=== PATIENT | female | born 1960 | race Caucasian/White ===

== ENCOUNTER 2017-12-07 06:39 | Day surgery (SDC) | payer OTHER ==
[~2017-12-07] VITALS: Ht 157.5 cm; Wt 70.2 kg
[~2017-12-07 06:39] MED LIST: ACET325 PO; CEFE1INJ2 IV; METR-1 PO; ONDA1TAB16 PO; VANC1000P IVPB; Z.0.NO CURRENT MEDS; [UNRECOGNIZED DRUG - CODE] IV
[2017-12-07] MEDS ORDERED: IOHEXOL 350 MG/ML 50 ML BTL (for Cath Lab) OTHER ONE (06:40)
[2017-12-07] MEDS ORDERED: NS 1000P @30 MLS/HR (KVO) IV SCH (07:00)
[2017-12-07] MEDS ORDERED: diphenhydrAMINE HCL 50 MG/ML VIAL IV PUSH SCH (07:00)
[2017-12-07] MEDS ORDERED: ASPI-516 CHEW (07:10)
[2017-12-07] MEDS ORDERED: ATOR40TA16 PO (07:10)
[2017-12-07 07:11] VITALS: BP 138/80; PULSE 68; RESP 18; TEMP 98.1; O2SAT 97
[2017-12-07] MEDS ORDERED: MIDAZOLAM HCL 2 MG/2 ML VIAL ONE ×2 (08:19→08:48)
[2017-12-07] MEDS ORDERED: HEPARIN-NS/PF FLUSH BAG 2,000 ML IV FLUSH ONE (08:19)
[2017-12-07] MEDS ORDERED: methylPREDNISolone SOD SUCC 125 MG/2 ML VIAL ONE (08:22)
[2017-12-07] MEDS ORDERED: LIDOCAINE HCL 1% PF 30 ML VIAL ONE (08:27)
[2017-12-07] MEDS ORDERED: MISC INFORMATION XX ONE (09:15)
--- NOTE | 2017-12-07 09:25 | MA ---
cc: Jones Nino MD DATE: 12/07/2017 INDICATION: Chest pain, abnormal stress test, intermediate risk. PROCEDURES PERFORMED: 1. Fluoroscopy interpretation. 2. Coronary angiography. 3. Left heart catheterization. METHOD: Risks, benefits and alternatives discussed with the patient. The patient understood and consented to the procedure. The patient was brought into the catheterization lab, placed on the catheterization table. The right wrist was prepped and draped in sterile fashion. The right wrist was anesthetized with 2% lidocaine. The right radial artery was cannulated and a 6-Eritrean, 7 cm sheath was placed without difficulty. 200 mcg of intraarterial nitroglycerin and additional 3000 units of intravenous heparin was administered. LEFT HEART CATHETERIZATION: Intraventricular hemodynamics measured at 105/8 mmHg. CORONARY ANGIOGRAPHY: 1. Left main coronary is widely patent. 2. Left anterior descending coronary has a 30% ostial stenosis. It is quite tortuous with a diagonal branch, which has mild luminal irregularities. Remainder of the left anterior descending coronary has mild luminal irregularities. 3. Left circumflex also very tortuous. Two obtuse marginal branches, both have minor luminal irregularities. 4. Right coronary has an angulated anterior takeoff, 30% stenosis in the proximal segment. The remainder of the vessel has minor luminal irregularities. CONCLUSIONS: 1. Mild nonobstructive coronary disease. 2. Normal left-sided filling pressures. PLAN: We will continue with medical management, although I think her symptoms are noncardiac in etiology. We will recommend noncardiac workup. She can followup with Dr. Alexandre. Radial band applied. Jones Nino MD REY/SB , 09:10 AM , 09:23 AM
--- NOTE | 2017-12-07 09:25 | CATHPROC ---
DCWafers HIS Report Study Information Study Number Admission Scheduled Start Study Start [id number] Dec 07 2017 6:39AM 12/07/2017 Dec 07 2017 8:15AM [place] Service Cardiac Catheterization Admit Source Facility Department Other [facility] - Instructional Design Specialist Physician and Clinical Staff Initial Jones Tsang [employer] Service Advisor Chris Hodgson,RN Recorder Augusto GONZALEZ, Jamshid Guan RCIS(BS) Procedures Performed Procedure Location (Site) Vessel Name Coronary Angiograms LCA Left Coronary Coronary Angiograms RCA Right Coronary L Heart Cath Wire insertion Radial (right) Radial Art. Equipment Time Assistant Cook Description Size Mfg Part Number Used/Scraped TRANSDUCER, TRUWAVE [id number] 08:47 [employer] * Used W/STOCKCOCK *[id number]-21-2.5 08:47 [employer]. NEEDLE, PERCUTANEOUS ENTRY 21G X 2.5CM Used *[id number] *[id number] 08:47 [employer] PACK, CCL CUSTOM * Used *[id number] 08:47 [employer] SUPPORT, ARTERIAL ADULT 01036 *[id number] Used [id number] 08:47 Amarin PACER PEN, SKIN DUAL W/ RULER * Used *[id number] 08:54 [employer] JR 5.0 DXTERITY CATHETER fr 5 [id number] Used BAND, RADIAL COMPRESSION TR [id number] 09:04 [email or web address] MEDICAL 24CM Used SHORT 24 *[id number] SHEATH, FR6 RADIAL PRELUDE 08:47 [employer] FR 6 [id number] Used EASE 11CM [id number] 08:47 [employer] WIRE, EXCHANGE 260CM 3MMJ 260CM Used *[id number] 08:47 [employer] OMNIPAQUE, 350 MG, 150ML 150ML [id number] Used [id number] 08:47 [employer] MEDICAL BLANKET,WARM AIR CCL * Used *[id number] Equipment Model, Serial, Lot Number and Expiration Data Description Model Number Serial Number Lot Number Expiration Date JR 5.0 DXTERITY CATHETER [id number] 03-11-2020 History: Current Medications Medication Dosage/Unit Route Frequency Last Date/Time Taken ASA Statins (any) History: Allergies Allergy Reaction Iodine Latex Acetaminophen Oxycodone ceftriaxone History: Risk Factors Family History of Hypertension Dyslipidemia Previous GA Previous Heart Failure Premature CAD No Yes No No No Prior Valve Prior PCI Prior CABG Surgery No No No Cerebrovascular Peripheral Artery Chronic Lung On Dialysis Diabetes Disease Disease Disease No No No Yes No History: Stress Tests Stress or Imaging Studies Performed Yes Standard Exercise Stress Test No Stress Echo No Stress Test SPECT Stress Test SPECT Result Stress Test SPECT Ischemia Risk/Extent Yes Positive Intermediate Stress Test CMR No Cardiac CTA Coronary Calcium Score No No History: Other Current Smoker No Labs Hgb (g/dl) Hct (%) WBC (l/cumm) Platelets (thousands) 11.60-17.00 35.00-51.00 4.00-11.00 150.00-450.00 12.0 37.1 4.7 205 Glucose (mg/dl) BUN (mg/dl) Creatinine (mg/dl) BUN:Creatinine (1:x) 74.00-106.00 7.00-18.00 0.50-1.30 10.00-20.00 122 13 0.8 16.3 Na (meq/l) K (meq/l) 136.00-145.00 3.50-5.10 143 4.3 INR (PTT:PT) 0.90-1.10 1 CPK-MB (ng/ML) 0.50-3.60 Not Drawn Medication Medication Total Dose (Bolus/Oral) Medication Total Dosage/Unit 1% XYLOCAINE 3 mL FENTANYL 75 mcg OXYGEN 2 l/min SOLU-MEDROL 125 mg VERSED 3 mg Medications (Bolus/Oral) Medication Time Given Dosage/Unit Administered By Reason SOLU-MEDROL 12/07/2017 8:29:35 AM 125 mg Chris Hodgson 125 mg SOLU-MEDROL given in lab by Chris Hodgson RN via Peripheral IV. Ordered by Jones Nino. 1% XYLOCAINE 12/07/2017 8:55:36 AM 3 mL Jones Nino 3 mL 1% XYLOCAINE given in lab by Jones Nino in Right Wrist via Subcutaneous. Ordered by Felipe Nino. VERSED 12/07/2017 8:56:39 AM 2 mg Chris Hodgson 2 mg VERSED given in lab by Chris Hodgson RN via Peripheral IV. Ordered by Jones Nino. OXYGEN 12/07/2017 8:57:09 AM 2 l/min Chris Hodgson 2 l/min OXYGEN given in lab by Chris Hodgson RN via Nasal. Ordered by Jones Nino. FENTANYL 12/07/2017 8:57:29 AM 50 mcg Chris Hodgson 50 mcg FENTANYL given in lab by Chris Hodgson RN via Peripheral IV. Ordered by Jones Nino. VERSED 12/07/2017 9:03:26 AM 1 mg Chris Hodgson 1 mg VERSED given in lab by Chris Hodgson RN via Peripheral IV. Ordered by Jones Nino. FENTANYL 12/07/2017 9:04:37 AM 25 mcg Chris Hodgson 25 mcg FENTANYL given in lab by Chris Hodgson RN via Peripheral IV. Ordered by Jones Nino. Initial Case Assessment Cardiovascular HR NIBP Chest Pain 59 138/83 0 Edema Present Skin color Skin None Normal Warm Dry Circulatory - Right Pulses Dorsalis Pedis Femoral Brachial Radial 1 2 1 2 Scale (0,1,2,3,4,d) Circulatory - Left Pulses Dorsalis Pedis Femoral Brachial Radial 1 2 Scale (0,1,2,3,4,d) Neurological State Oriented to time-place- Alert Moves all extremities person Respiration - General SpO2 (%) O2 (lpm) 96 0 Chronological Log Time Study Chronological Log 8:15:24 Patient arrived via Bed. 8:15:24 Patient Name, D.O.B, / Armband Verified By R.N. 8:15:25 Consent signed by the physician and the patient and verified by the Instructional Design Specialist staff. 8:15:26 Pre-op and post- op instructions given; patient acknowledges understanding of instructions. 8:15:27 Presedation assessment performed by Instructional Design Specialist RN. 8:15:28 Allens test performed on the right radial and ulnar artery. 8:15:29 Immediate Presedation assesment performed by physician. 8:15:30 Patient has been NPO for More than 6Hrs. 8:15:30 Skin Breakdown- none reported by patient 8:15:31 Patient Warmer Placed on the Table. 8:15:32 Arlyn Prominences Protected 8:15:34 A # 20 IV was noted in the Antecubital (left). Grade = 0 8:15:35 History and physical on the chart or being dictated. 8:20:58 History and physical on the chart or being dictated. Vitals capture started with the following parameters, Patient=Adult, Interval=5 min, Initial Pre pvzvy=110 mmHg, 8:29:06 Deflation Rate=5 mmHg, Cuff placed on Left Arm 8:29:35 125 mg SOLU-MEDROL given in lab by Chris Hodgson, RN via Peripheral IV. Ordered by St cheo Nino. 8:29:49 HR=57 bpm, KSCA=659/82 mmhg, SpO2=97.0 %, Resp=11 B/min, Edda=10 8:30:31 Right Radial and groin(s) prepped with 2% chlorhexidine, and draped after a 3 min. waiting t kelsi. 8:34:46 HR=59 bpm, RLKQ=602/77 mmhg, SpO2=96.0 %, Resp=15 B/min, Pain=0, Sánchez=2 8:37:17 MD paged 8:38:28 Pressure channel 1 zeroed. Assessment: Initial Case, HR=59 BPM, PQJA=362/83 mmhg, Chest Pain=0, Edema=None, Color=Normal, S kin = Warm, Dry Right Pulses: Jordi Ped=1, Femoral=2, Brachial=1, Radial=2 8:39:29 Left Pulses: Jordi Ped=1, Femoral=2 Neurological: State=Alert, Ox3, QUACH Respiration: SpO2=96 %, O2=0 lpm 8:39:49 HR=62 bpm, ECTA=339/82 mmhg, SpO2=93.0 %, Resp=8 B/min, Pain=0, Sánchez=2 8:45:19 HR=60 bpm, KSRS=947/65 mmhg, SpO2=94.0 %, Resp=14 B/min, Pain=0, Sánchez=2 8:46:12 MD responded 8:49:49 HR=64 bpm, NIBP=93/75 mmhg, SpO2=94.0 %, Resp=10 B/min, Pain=0, Sánchez=2 8:51:47 Reference ECG taken 8:52:01 MD arrived. 8:53:18 NIBP STAT measurement started. Time Out. Correct patient, correct procedure, correct physician, power injector loaded, or not l oaded with contrast with 8:54:27 surgical team present. Time Out Concurred by MD and individual staff in procedure. 8:54:28 HR=57 bpm, OOPS=822/82 mmhg, SpO2=94.0 %, Resp=12 B/min, Pain=0, Sánchez=2 8:55:32 Case Start 8:55:36 3 mL 1% XYLOCAINE given in lab by Jones Nino in Right Wrist via Subcutaneous. Ordered by Jones Nino. 8:56:39 2 mg VERSED given in lab by Chris Hodgson RN via Peripheral IV. Ordered by Jones Nino. 8:57:09 2 l/min OXYGEN given in lab by Chris Hodgson RN via Nasal. Ordered by Jones Nino. 8:57:27 Access site was Radial Artery. 8:57:29 50 mcg FENTANYL given in lab by Chris Hodgson RN via Peripheral IV. Ordered by Yeni Nino A SHEATH, FR6 RADIAL PRELUDE EASE 11CM FR 6 was advanced into the Radial (right) using the Mod ified Seldinger 8:57:53 technique. A JR 5.0 DXTERITY CATHETER fr 5 was advanced over a wire. OMNIPAQUE, 350 MG, 150ML 150ML was u sed for 8:58:23 injections. 8:58:26 sheath sutured 8:59:00 A WIRE, EXCHANGE 260CM 3MMJ 260CM was inserted via Radial (right). Recorded Pressure: LV, HR=64, Condition=Condition 1 8:59:36 (Left Ventricle) LV 105/8/11 9:00:26 HR=61 bpm, PWCT=242/76 mmhg, SpO2=98.0 %, Resp=9 B/min, Pain=0, Sánchez=2 9:00:37 The RCA was injected and visualized at various angles. contrast used. After removing the current catheter a JL 3.5 INFINITI CATHETER FR 5 was advanced over a WIRE, EXCHANGE 260CM 9:01:17 3MMJ 260CM. Recorded Pressure: Ao, HR=63, Condition=Condition 1 9:02:05 (Aorta) Ao 119/76/95 9:02:34 The LCA was injected and visualized at various angles. OMNIPAQUE, 350 MG, 150ML 150ML use d. 9:02:49 Catheter was removed 9:02:52 Case End Radial Compression Device Used. 12 mLs of air placed in BAND, RADIAL COMPRESSION TR SHORT 24 2 4CM. Affected 9:03:21 hand 94 % O2 saturation. 9:03:26 1 mg VERSED given in lab by Burfield, Chris, RN via Peripheral IV. Ordered by Jones Nino . 9:03:49 No case complications noted. 9:04:37 25 mcg FENTANYL given in lab by Chris Hodgson RN via Peripheral IV. Ordered by Jabari Nino. 9:04:49 HR=62 bpm, ZAGC=035/71 mmhg, SpO2=96.0 %, Resp=12 B/min, Pain=0, Sánchez=2 9:08:19 Vitals capture stopped. 9:10:05 Bedside Report will be given. 9:10:10 DOCU called. Spoke to Catina 9:10:26 A Left Heart Cath was performed. 9:12:54 Patient moved to [facility] End Study - Contrast Media Used In Study Contrast Total Opened (mL) Total Used (mL) Total Wasted (mL) Omnipaque 40 40 0 End Study - Maximum Contrast Load Max Contrast Load (mL) 438.6 End Study - Radiation Exposure Fluoro Time (minutes) 1.0 End Study - Patient Disposition Complications Transferred To Interventional Outcome No Instructional Design Specialist Holding No attempt made
== END 2017-12-07 14:55 | disposition home or self-care (01) ==
LOC: HDOC 06:39 → HDIC 06:39 → HDOC 14:55
PROVIDERS: ATTEND Internal Medicine
DX: I25.10 Atherosclerotic heart disease of native coronary artery without angina pectoris (principal); E78.5 Hyperlipidemia, unspecified; J45.909 Unspecified asthma, uncomplicated
CPT/HCPCS: 86850; 86900; 86901; 93458; 99152; C1769; C1893; J1644; J2250; J2930; J3010; Q9967

== ENCOUNTER 2017-12-08 20:44 | Emergency (ER) | payer OTHER ==
[~2017-12-08] VITALS: Ht 157.5 cm; Wt 72.0 kg
[~2017-12-08 20:44] MED LIST changes: -ACET325 PO; +ASPI-516 CHEW; +ATOR40TA16 PO; -CEFE1INJ2 IV; -METR-1 PO; -ONDA1TAB16 PO; -VANC1000P IVPB; -Z.0.NO CURRENT MEDS; -[UNRECOGNIZED DRUG - CODE] IV
[2017-12-08 22:19] VITALS: BP 103/55; PULSE 67; RESP 22; TEMP 99.2; O2SAT 98
[2017-12-08] MEDS ORDERED: diphenhydrAMINE HCL 50 MG/ML VIAL IV PUSH ONE (22:45)
[2017-12-08] MEDS ORDERED: methylPREDNISolone SOD SUCC 125 MG/2 ML VIAL IV PUSH ONE (22:45)
--- NOTE | 2017-12-08 23:01 | PD ---
HPI Chief Complaint: Allergic/Adverse Reaction Time Seen by Provider: 22:28 Travel History International Travel<30 days: No Contact w/Intl Traveler<30days: No Traveled to known affect area: No History of Present Illness HPI Patient is a 57-year-old female presents emergency department for evaluation of an adverse reaction to IV dye she received during a cardiac catheterization yesterday. She states Dr. Nino's her executive chef advised her to take some Benadryl but she is still itching and has hives all over her body. She states she has had this reaction prior to her catheterization yesterday. She was also given 1 dose of p.o. steroids though she does not know the name of it. She states her throat feels somewhat funny but does not endorse any difficulty swallowing changes in voice or problems speaking. She does have an EpiPen for prior similar reactions but she has never had to use it before. States symptoms are moderate, started yesterday, gradually worsening, context and associated signs and symptoms as above PFSH Past Medical History Arthritis: No Asthma: No Heart Rhythm Problems: No Cancer: No Cardiovascular Problems: Yes (MURMUR) High Cholesterol: Yes Chemotherapy: No Chest Pain: No Congestive Heart Failure: No COPD: No Cerebrovascular Accident: No Diabetes: No Endocrine: No GERD: No Genitourinary: No Hepatitis: No Hiatal Hernia: No Kidney Stones: No Musculoskeletal: No Neurologic: No Psychiatric: No Reproductive: No Respiratory: Yes Immunizations Current: Yes Migraines: No Radiation Therapy: No Renal Failure: No Seizures: No Sickle Cell Disease: No Sleep Apnea: No Thyroid Disease: No Ulcer: No Menopausal: Yes Past Surgical History Abdominal Surgery: Yes (APPENDECTOMY,) Appendectomy: Yes Arteriovenous Shunt: No Cardiac Surgery: No Cholecystectomy: Yes Ear Surgery: No Endocrine Surgery: No Eye Surgery: No Genitourinary Surgery: No Gynecologic Surgery: Yes (HYST) Hysterectomy: Yes Insulin Pump: No Joint Replacement: No Oral Surgery: Yes (WISDOM TEETH REMOVED ) Pacemaker: No Thoracic Surgery: No Social History Alcohol Use: Yes (OCC) Tobacco Use: No Substance Use: No Allergies-Medications (Allergen,Severity, Reaction): Coded Allergies: aspirin (Unverified Allergy, Severe, 12/07/17) oxycodone (Unverified Allergy, Severe, 12/07/17) Iodinated Contrast- Oral and IV Dye (Verified Allergy, Unknown, 4/3/18) aztreonam (Verified Allergy, Unknown, 12/07/17) ceftriaxone (Unverified Allergy, Unknown, INCREASED HEART RATE, 12/07/17) latex (Verified Allergy, Unknown, 12/07/17) metronidazole (Verified Allergy, Unknown, 12/07/17) vancomycin (Verified Allergy, Unknown, 12/07/17) acetaminophen (Unverified Adverse Reaction, Unknown, N/V, 12/07/17) propoxyphene (Unverified Adverse Reaction, Unknown, N/V, 12/07/17) Reported Meds & Prescriptions Reported Meds & Active Scripts Active Prednisone 20 Mg Tab 60 Mg PO DAILY 5 Days Reported Aspirin 81 Mg Chew 81 Mg CHEW DAILY Atorvastatin (Atorvastatin Calcium) 40 Mg Tab 40 Mg PO HS Review of Systems Except as stated in HPI: all other systems reviewed are Neg Physical Exam Narrative GENERAL: Well-developed well-nourished no obvious distress peer SKIN: Focused skin assessment warm/dry. Generalized hives, coalescing on her abdomen and trunk, also present in bilateral upper extremities and bilateral lower extremities. HEAD: Atraumatic. Normocephalic. EYES: Pupils equal and round. No scleral icterus. No injection or drainage. ENT: No nasal bleeding or discharge. Mucous membranes pink and moist. Airway is widely patent, no hoarseness to her voice, patient swallows easily on command , tolerating her own secretions. No uvular swelling, no soft palate swelling I no tongue swelling NECK: Trachea midline. No JVD. CARDIOVASCULAR: Regular rate and rhythm. No murmur appreciated. RESPIRATORY: No accessory muscle use. Clear to auscultation. Breath sounds equal bilaterally. GASTROINTESTINAL: Abdomen soft, non-tender, nondistended. Hepatic and splenic margins not palpable. MUSCULOSKELETAL: No obvious deformities. No clubbing. No cyanosis. No edema. NEUROLOGICAL: Awake and alert. No obvious cranial nerve deficits. Motor grossly within normal limits. Normal speech. PSYCHIATRIC: Appropriate mood and affect; insight and judgment normal. Data Data Last Documented VS Vital Signs Date Time Temp Pulse Resp B/P (MAP) Pulse Ox O2 Delivery O2 Flow Rate FiO2 12/08/17 22:19 99.2 67 22 103/55 (71) 98 Orders Orders Diphenhydramine Inj (Benadryl Inj) (12/08/17 22:45) Methylprednisolone So Succ Inj (Solumedr (12/08/17 22:45) Ed Discharge Order (12/09/17 00:45) MDM Medical Decision Making Medical Screen Exam Complete: Yes Emergency Medical Condition: Yes Differential Diagnosis Hives, allergic reaction, anaphylaxis unlikely, airway involvement unlikely. Narrative Course Patient room to the emergency department, medications given the patient was observed for several hours. On my revisit she is sleeping soundly, she has not had any desaturation, she is not stridorous, she arouses easily to voice, she states she is already feeling somewhat better. Discussed with her symptomatic management and discuss indications for using her EpiPen which she does still have at home. Will place on prednisone burst course at home, discuss returning to criteria and when to call 911. She is stable for discharge. Diagnosis Primary Impression: Hives Med/Other Pt SpecificInfo: Prescription(s) given Scripts Prednisone (Prednisone) 20 Mg Tab 60 MG PO DAILY for 5 Days, #15 TAB 0 Refills Prov: Manjit Samuel MD 12/09/17 Disposition: 01 DISCHARGE HOME Condition: Stable Manjit Samuel MD Dec 08, 2017 23:01
[2017-12-09] MEDS ORDERED: PRED20 PO (00:45)
[2017-12-10] MEDS ORDERED: MEDR4PAK PO (12:32)
== END 2017-12-09 01:56 | disposition home or self-care (01) ==
LOC: NEPE 20:44
DX: L50.9 Urticaria, unspecified (principal); E78.00 Pure hypercholesterolemia, unspecified
CPT/HCPCS: 96374; 96375; 99284; J1200; J2930

== ENCOUNTER 2017-12-10 09:02 | Emergency (ER) | payer OTHER ==
[~2017-12-10] VITALS: Ht 157.5 cm; Wt 70.1 kg
[~2017-12-10 09:02] MED LIST changes: +PRED20 PO
[2017-12-10 09:09] VITALS: BP 112/70; PULSE 57; RESP 18; TEMP 98; O2SAT 100
[2017-12-10 09:24] VITALS: BP 134/77; PULSE 60; RESP 16; O2SAT 97
[2017-12-10] MEDS ORDERED: SODIUM CHLOR 0.9% 1000 ML INJ 1,000 ML IV SCH (09:27)
[2017-12-10] MEDS ORDERED: FAMOTIDINE 20 MG/2 ML VIAL IV PUSH ONE (09:30)
[2017-12-10] MEDS ORDERED: SODIUM CHLORIDE 0.9% FLUSH 10 ML FLUSH IV FLUSH PRN (09:30)
[2017-12-10] MEDS ORDERED: ONDANSETRON HCL 4 MG/2 ML VIAL IV PUSH ONE (09:30)
[2017-12-10] MEDS ORDERED: diphenhydrAMINE HCL 50 MG/ML VIAL IVP ONE (09:30)
[2017-12-10] MEDS ORDERED: methylPREDNISolone SOD SUCC 125 MG/2 ML VIAL IV PUSH ONE (09:30)
--- NOTE | 2017-12-10 09:32 | PD ---
HPI Chief Complaint: Allergic/Adverse Reaction Time Seen by Provider: 09:27 Travel History International Travel<30 days: No Contact w/Intl Traveler<30days: No Traveled to known affect area: No History of Present Illness HPI 57-year-old female patient with history of allergic reaction to contrast dye, had a catheterization done on Wednesday with prep for her allergy before the procedure, but ended up getting a contrast allergy reaction and was seen by Dr. Samuel 2 days ago, was treated with steroids and Benadryl, but states that she woke up this morning with rash all over her abdomen and feels like is going up to her face. She took her 60 mg of prednisone this morning but did not take Benadryl since last night. She feels like she is getting hoarse and nauseous but denies any difficulty swallowing, breathing, or any other issues. Modifying Factors: None Associated Signs & Symptoms: Allergic reaction getting worse Risk Factors: Recently seen for the same 2 days ago PFSH Past Medical History Arthritis: No Asthma: No Heart Rhythm Problems: No Cancer: No Cardiovascular Problems: Yes (12/07/17) High Cholesterol: Yes Chemotherapy: No Chest Pain: No Congestive Heart Failure: No COPD: No Cerebrovascular Accident: No Diabetes: No Endocrine: No GERD: No Genitourinary: No Hepatitis: No Hiatal Hernia: No Kidney Stones: No Musculoskeletal: No Neurologic: No Psychiatric: No Reproductive: No Respiratory: Yes Immunizations Current: Yes Migraines: No Radiation Therapy: No Renal Failure: No Seizures: No Sickle Cell Disease: No Sleep Apnea: No Thyroid Disease: No Ulcer: No Influenza Vaccination: No Menopausal: Yes Past Surgical History Abdominal Surgery: Yes (APPENDECTOMY,) Appendectomy: Yes Arteriovenous Shunt: No Cardiac Surgery: No Cholecystectomy: Yes Ear Surgery: No Endocrine Surgery: No Eye Surgery: No Genitourinary Surgery: No Gynecologic Surgery: Yes (HYST) Hysterectomy: Yes Insulin Pump: No Joint Replacement: No Oral Surgery: Yes (WISDOM TEETH REMOVED ) Pacemaker: No Thoracic Surgery: No Social History Alcohol Use: Yes (OCC) Tobacco Use: No Substance Use: No Allergies-Medications (Allergen,Severity, Reaction): Coded Allergies: aspirin (Unverified Allergy, Severe, 12/10/17) oxycodone (Unverified Allergy, Severe, 12/10/17) isosorbide (Verified Allergy, Intermediate, 12/10/17) Iodinated Contrast- Oral and IV Dye (Verified Allergy, Unknown, 12/10/17) aztreonam (Verified Allergy, Unknown, 12/10/17) ceftriaxone (Unverified Allergy, Unknown, INCREASED HEART RATE, 12/10/17) latex (Verified Allergy, Unknown, 12/10/17) metronidazole (Verified Allergy, Unknown, 12/10/17) vancomycin (Verified Allergy, Unknown, 12/10/17) acetaminophen (Unverified Adverse Reaction, Unknown, N/V, 12/10/17) propoxyphene (Unverified Adverse Reaction, Unknown, N/V, 12/10/17) Reported Meds & Prescriptions Reported Meds & Active Scripts Active Prednisone 20 Mg Tab 60 Mg PO DAILY 5 Days Review of Systems Except as stated in HPI: all other systems reviewed are Neg Physical Exam Narrative GENERAL: Well-developed middle-aged female patient currently in mild distress. Awake and oriented 3. Airway is intact. SKIN: Focused skin assessment warm/dry. There are notable erythematous rash and hives over the abdomen mainly, some more diffuse mild erythematous rash to the legs and neck area. HEAD: Atraumatic. Normocephalic. EYES: Pupils equal and round. No scleral icterus. No injection or drainage. ENT: No nasal bleeding or discharge. Mucous membranes pink and moist. Airway is intact. No angioedema. NECK: Trachea midline. No JVD. CARDIOVASCULAR: Regular rate and rhythm. No murmur appreciated. RESPIRATORY: No accessory muscle use. Clear to auscultation. Breath sounds equal bilaterally. GASTROINTESTINAL: Abdomen soft, non-tender, nondistended. Hepatic and splenic margins not palpable. MUSCULOSKELETAL: No obvious deformities. No clubbing. No cyanosis. No edema. NEUROLOGICAL: Awake and alert. No obvious cranial nerve deficits. Motor grossly within normal limits. Normal speech. PSYCHIATRIC: Appropriate mood and affect; insight and judgment normal. Data Data Last Documented VS Vital Signs Date Time Temp Pulse Resp B/P (MAP) Pulse Ox O2 Delivery O2 Flow Rate FiO2 12/10/17 11:29 59 117/62 12/10/17 09:24 16 97 Room Air 12/10/17 09:09 98.0 Orders Orders Basic Metabolic Panel (Bmp) (12/10/17 09:27) Complete Blood Count With Diff (12/10/17 09:27) Ecg Monitoring (12/10/17 09:27) Iv Access Insert/Monitor (12/10/17 09:27) Oximetry (12/10/17 09:27) Diphenhydramine Inj (Benadryl Inj) (12/10/17 09:30) Methylprednisolone So Succ Inj (Solumedr (12/10/17 09:30) Famotidine Inj (Pepcid Inj) (12/10/17 09:30) Sodium Chlor 0.9% 1000 Ml Inj (Ns 1000 M (12/10/17 09:27) Sodium Chloride 0.9% Flush (Ns Flush) (12/10/17 09:30) Ondansetron Inj (Zofran Inj) (12/10/17 09:30) Epinephrine (1:1000) Inj (Adrenalin (1:1 (12/10/17 11:15) Ed Discharge Order (12/10/17 12:29) Labs Laboratory Tests Test 12/10/17 09:45 White Blood Count 13.3 TH/MM3 Red Blood Count 4.54 MIL/MM3 Hemoglobin 13.5 GM/DL Hematocrit 39.4 % Mean Corpuscular Volume 86.7 FL Mean Corpuscular Hemoglobin 29.7 PG Mean Corpuscular Hemoglobin Concent 34.3 % Red Cell Distribution Width 13.5 % Platelet Count 205 TH/MM3 Mean Platelet Volume 10.2 FL Neutrophils (%) (Auto) 90.2 % Lymphocytes (%) (Auto) 2.9 % Monocytes (%) (Auto) 3.6 % Eosinophils (%) (Auto) 3.2 % Basophils (%) (Auto) 0.1 % Neutrophils # (Auto) 12.0 TH/MM3 Lymphocytes # (Auto) 0.4 TH/MM3 Monocytes # (Auto) 0.5 TH/MM3 Eosinophils # (Auto) 0.4 TH/MM3 Basophils # (Auto) 0.0 TH/MM3 CBC Comment DIFF FINAL Differential Comment Blood Urea Nitrogen 19 MG/DL Creatinine 0.98 MG/DL Random Glucose 104 MG/DL Calcium Level 9.2 MG/DL Sodium Level 138 MEQ/L Potassium Level 3.4 MEQ/L Chloride Level 102 MEQ/L Carbon Dioxide Level 28.8 MEQ/L Anion Gap 7 MEQ/L Estimat Glomerular Filtration Rate 58 ML/MIN MDM Medical Decision Making Medical Screen Exam Complete: Yes Emergency Medical Condition: Yes Medical Record Reviewed: Yes Interpretation(s) Laboratory Tests Test 12/10/17 09:45 White Blood Count 13.3 TH/MM3 (4.0-11.0) Neutrophils (%) (Auto) 90.2 % (16.0-70.0) Lymphocytes (%) (Auto) 2.9 % (9.0-44.0) Neutrophils # (Auto) 12.0 TH/MM3 (1.8-7.7) Lymphocytes # (Auto) 0.4 TH/MM3 (1.0-4.8) Blood Urea Nitrogen 19 MG/DL (7-18) Potassium Level 3.4 MEQ/L (3.5-5.1) Estimat Glomerular Filtration Rate 58 ML/MIN (>89) Differential Diagnosis Allergic reaction Narrative Course She was given Solu-Medrol, Benadryl, and epinephrine in the ER. She was reevaluated several times and observed over 3 hours, she did not have any progression of symptoms, there was no angioedema, and at this point, I have talked to the patient regarding her current doses of medications. It appears that she was due to take her Benadryl this morning but did not, and she is only on the 60 mg of prednisone. At this point, I think what I will do is put her on a Medrol taper and have her stay on the Benadryl every 6 hours for the next few days. She has EpiPen in her purse at all times. She should return for any progression. The plan has been discussed with her and she states understanding. She is to follow-up closely with primary care doctor as well. Diagnosis Primary Impression: Allergic reaction to contrast dye Med/Other Pt SpecificInfo: Prescription(s) given Scripts Methylprednisolone Dosepak (Medrol Dosepak) 4 Mg Dspk 4 MG PO DIRECTED, #1 DSPK 0 Refills Per Pharmacist direction Prov: Saleem Franklin MD 12/10/17 Disposition: 01 DISCHARGE HOME Condition: Stable Saleem Franklin MD Dec 10, 2017 09:32
[2017-12-10 10:30] LABS: BASOPHIL % 0.1 % (0.0-2.0); EOSINOPHIL # 0.4 TH/MM3 (0-0.4); EOSINOPHIL % 3.2 % (0.0-4.0); HEMATOCRIT 39.4 % (35.0-46.0); HEMOGLOBIN 13.5 GM/DL (11.6-15.3); LYMPH % 2.9 % (9.0-44.0); LYMPHOCYTE # 0.4 TH/MM3 (1.0-4.8); MEAN CELL VOLUME 86.7 FL (80.0-100.0); MEAN CORPUSCULAR HEMOGLOBIN 29.7 PG (27.0-34.0); MEAN CORPUSCULAR HGB CONC 34.3 % (32.0-36.0); MEAN PLATELET VOLUME 10.2 FL (7.0-11.0); MONO % 3.6 % (0.0-8.0); MONOCYTE # 0.5 TH/MM3 (0-0.9); NEUT % 90.2 % (16.0-70.0); PLATELET COUNT 205 TH/MM3 (150-450); RED BLOOD COUNT 4.54 MIL/MM3 (4.00-5.30); RED CELL DISTRIBUTION WIDTH 13.5 % (11.6-17.2); WHITE BLOOD COUNT 13.3 TH/MM3 (4.0-11.0)
[2017-12-10 10:50] LABS: BICARBONATE 28.8 MEQ/L (21.0-32.0); CALCIUM 9.2 MG/DL (8.5-10.1); CREATININE 0.98 MG/DL (0.50-1.00)
[2017-12-10] MEDS ORDERED: EPINEPHrine HCL (1:1000) 1 MG/ML VIAL IM ONE (11:15)
[2017-12-10 11:29] VITALS: PULSE 59
[2017-12-10] MEDS ORDERED: MEDR4PAK PO (12:32)
[2017-12-10 12:46] VITALS: BP 110/61
== END 2017-12-10 13:01 | disposition home or self-care (01) ==
LOC: NEPC 09:02
DX: T50.8X5A Adverse effect of diagnostic agents, initial encounter (principal); R21 Rash and other nonspecific skin eruption; L50.9 Urticaria, unspecified; R49.0 Dysphonia; R11.0 Nausea; E78.00 Pure hypercholesterolemia, unspecified; Z88.6 Allergy status to analgesic agent; Z79.899 Other long term (current) drug therapy; Z88.5 Allergy status to narcotic agent
CPT/HCPCS: 80048; 85025; 96361; 96372; 96374; 96375; 99284; J0171; J1200; J2405; J2930; J7030